=== PATIENT | female | born 1990 | race African-American/Black ===

== ENCOUNTER 2023-05-24 21:57 | Emergency (ER) | payer SELFPAY ==
[~2023-05-24] VITALS: Ht 172.7 cm; Wt 63.0 kg
[2023-05-24 21:59] VITALS: TEMP 98.9; O2SAT 99
[2023-05-24] MEDS: KETOROLAC 60MG/2ML VIAL IM ONE (23:31)
[2023-05-25] MEDS ORDERED: ACET-2708 MT (00:26)
[2023-05-25] MEDS ORDERED: IBUP-2028 MT (00:26)
[2023-05-25] MEDS ORDERED: LIDO700A15 TP (00:26)
[2023-05-25 00:56] VITALS: BP 111/76; PULSE 94; RESP 16
== END 2023-05-25 00:57 | disposition home or self-care (01) ==
LOC: ER 21:57
DX: S09.8XXA Other specified injuries of head, initial encounter (principal); S20.219A Contusion of unspecified front wall of thorax, initial encounter; Z98.890 Other specified postprocedural states; X58.XXXA Exposure to other specified factors, initial encounter; Y93.89 Activity, other specified; Y92.89 Other specified places as the place of occurrence of the external cause; Y99.8 Other external cause status
CPT/HCPCS: 99283; 81025; 71101; 96372; J1885

== ENCOUNTER 2023-11-05 22:53 | Emergency (ER) | payer SELFPAY ==
[~2023-11-05] VITALS: Ht 172.7 cm; Wt 62.0 kg
[~2023-11-05 22:53] MED LIST: ACET-2708 MT; IBUP-2028 MT; LIDO700A15 TP
[2023-11-05 22:57] VITALS: BP 106/65; RESP 14; TEMP 98.4; O2SAT 99
[2023-11-05 22:58] VITALS: PULSE 95
[2023-11-05 23:35] LABS: BASOPHILS % 0.7 % (0.0-2.0); HEMATOCRIT. 34.1 % (36.0-48.0); HEMOGLOBIN. 11.7 g/dL (12.0-16.0); MEAN CORPUSCULAR HEMOGLOBIN 31.9 pg (28.0-32.0); MEAN CORPUSCULAR HGB CONC 34.3 g/dL (31.0-37.0); MEAN CORPUSCULAR VOLUME 92.8 fL (81.0-99.0); MEAN PLATELET VOLUME 8.5 fl (7.4-10.4); MONOCYTES % 6.9 % (2.0-8.0); NEUTROPHILS % 59.4 % (40.0-76.0); PLATELET 244 x1000/uL (130-400); RED BLOOD CELL COUNT 3.68 mill/uL (4.2-5.4); RED CELL DISTRIBUTION WIDTH 13.1 % (11.6-14.6); WHITE BLOOD COUNT 7.2 x1000/uL (4.5-11.0)
[2023-11-05 23:41] LABS: CHLORIDE 110 mEq/L (98-107); POTASSIUM 3.3 mEq/L (3.5-5.1); SODIUM 137 mEq/L (136-145)
[2023-11-05 23:42] LABS: CARBON DIOXIDE 25 mEq/L (21-32)
[2023-11-05 23:43] LABS: CALCIUM 9.1 mg/dL (8.7-10.4)
[2023-11-05 23:46] LABS: CLARITY URINE CLOUDY (CLEAR); COLOR URINE YELLOW (YELLOW); GLUCOSE URINE NEGATIVE (NEGATIVE); KETONES URINE NEGATIVE (NEGATIVE); LEUKOCYTE ESTERASE URINE 2+ (NEGATIVE); NITRITE URINE POSITIVE (NEGATIVE); OCCULT BLOOD URINE 3+ (NEGATIVE); PH URINE 6.5 (4.5-8.0); PROTEIN URINE 1+ (NEGATIVE); SPECIFIC GRAVITY URINE 1.023 (1.005-1.030)
[2023-11-05 23:47] LABS: CREATININE 0.9 mg/dL (0.6-1.0)
[2023-11-05 23:48] LABS: GLUCOSE 116 mg/dL (70-105); UREA NITROGEN BLOOD 9 mg/dL (9-23)
[2023-11-05 23:49] LABS: ALANINE AMINOTRANSFERASE 10 IU/L (10-49)
[2023-11-05 23:50] LABS: ASPARTATE AMINOTRANSFERASE 13 IU/L (<34); BILIRUBIN TOTAL 0.2 mg/dL (0.1-1.0)
[2023-11-06 00:02] LABS: BILIRUBIN DIRECT < 0.1 mg/dL (<=3.0)
[2023-11-06] MEDS ORDERED: NITR-87 MT (00:39)
[2023-11-06 02:45] LABS: RBC URINE 15-25 /hpf (0-2)
[2023-11-06 02:46] LABS: BACTERIA URINE 4+; SQUAMOUS EPITHELIAL CELL URINE 1+ /lpf (RARE/1+)
[2023-11-06] MEDS ORDERED: CLOT45CR62 VG (11:19)
[2023-11-06] MEDS ORDERED: METR-167 MT (11:19)
[2023-11-06] MEDS ORDERED: CEPH500T MT (11:19)
== END 2023-11-06 00:39 | disposition left against medical advice (07) ==
LOC: ER 22:53
DX: O26.899 Other specified pregnancy related conditions, unspecified trimester (principal); O23.30 Infections of other parts of urinary tract in pregnancy, unspecified trimester; Z3A.00 Weeks of gestation of pregnancy not specified
CPT/HCPCS: 36415; 80048; 80076; 81003; 81025; 85025; 87077; 87186; 99283

== ENCOUNTER 2023-11-06 08:23 | Emergency (ER) | payer SELFPAY ==
[~2023-11-06] VITALS: Ht 172.7 cm; Wt 62.0 kg
[~2023-11-06 08:23] MED LIST changes: +NITR-87 MT
[2023-11-06 08:29] VITALS: O2SAT 100
[2023-11-06 09:17] LABS: CLARITY URINE CLOUDY (CLEAR); COLOR URINE YELLOW (YELLOW); GLUCOSE URINE NEGATIVE (NEGATIVE); KETONES URINE TRACE (NEGATIVE); LEUKOCYTE ESTERASE URINE 3+ (NEGATIVE); NITRITE URINE POSITIVE (NEGATIVE); OCCULT BLOOD URINE 3+ (NEGATIVE); PROTEIN URINE 1+ (NEGATIVE); SPECIFIC GRAVITY URINE 1.021 (1.005-1.030)
[2023-11-06 09:25] LABS: HCG SCREEN POSITIVE
[2023-11-06 09:30] LABS: SQUAMOUS EPITHELIAL CELL URINE 3+ /lpf (RARE/1+)
[2023-11-06 09:31] LABS: BACTERIA URINE 4+
[2023-11-06 09:33] LABS: TRICHOMONAS URINE FEW
[2023-11-06] MEDS ORDERED: CEPH500T MT (11:19)
[2023-11-06] MEDS ORDERED: CLOT45CR62 VG (11:19)
[2023-11-06] MEDS ORDERED: METR-167 MT (11:19)
[2023-11-06 11:42] VITALS: BP 112/68; PULSE 71; RESP 18; TEMP 97.7
== END 2023-11-06 11:43 | disposition home or self-care (01) ==
LOC: ER 09:27
DX: O26.891 Other specified pregnancy related conditions, first trimester (principal); O23.31 Infections of other parts of urinary tract in pregnancy, first trimester; A59.9 Trichomoniasis, unspecified; B37.31 Acute candidiasis of vulva and vagina; Z3A.01 Less than 8 weeks gestation of pregnancy
CPT/HCPCS: 36415; 81003; 81025; 84702; 84703; 87077; 87186; 87210; 99283